=== PATIENT | female | born 1985 ===

== ENCOUNTER 2023-10-15 15:52 | Emergency (ER) | payer OTHER ==
[~2023-10-15] VITALS: Ht 180.3 cm; Wt 88.5 kg
[2023-10-15] MEDS ORDERED: SULFAMETH/TRIMETH 800/160 MG TABLET ONE (18:31)
[2023-10-15] MEDS: SULFAMETH/TRIMETH 800/160 MG TABLET PO ONE (18:31)
[2023-10-15] MEDS ORDERED: SULF1TAB48 PO (18:49)
[2023-10-15 19:04] LABS: *BILIRUBIN,URIN NEGATIVE (NEGATIVE); *BLOOD, URINE 3+ (NEGATIVE); *COLOR,URINE YELLOW (YELLOW); *KETONES,URINE NEGATIVE (NEGATIVE); *PROTEIN,URINE 1+ (NEGATIVE); LEUKOCYTE ESTERASE ,URINE 1+ (NEGATIVE); NITRITE, URINE NEGATIVE (NEGATIVE); UGLUCOSE NEGATIVE (NEGATIVE)
[2023-10-15 19:26] LABS: *CLARITY,URINE SLIGHTLY CLOUDY (CLEAR)
[2023-10-15 19:31] LABS: *URINE HCG, QUAL NEGATIVE (NEGATIVE)
[2023-10-15 19:39] LABS: BACTERIA,URINE MANY /HPF (NONE SEEN); RBC,URINE 50-80 /HPF (0-3); SQUAMOUS EPITHELIAL CELL,UR MANY /HPF (NONE SEEN)
[2023-10-15 20:02] VITALS: BP 128/79; TEMP 97.9; O2SAT 99
[2023-10-16 23:07] LABS: *CHLAMYDIA NAA Negative (Negative); *GC NAA Negative (Negative); *TRIC.VAG. NAA Negative (Negative)
== END 2023-10-15 19:10 | disposition home or self-care (01) ==
LOC: ER 15:57
DX: N39.0 Urinary tract infection, site not specified (principal); B95.8 Unspecified staphylococcus as the cause of diseases classified elsewhere; R10.2 Pelvic and perineal pain; Z79.899 Other long term (current) drug therapy
CPT/HCPCS: 76856; 84703; 87491; A4606; A4663